=== PATIENT | male | born 2000 | race Two or more races ===

== ENCOUNTER 2018-08-07 21:17 | Emergency (ER) | payer SELFPAY ==
[~2018-08-07] VITALS: Ht 182.9 cm; Wt 81.6 kg
[2018-08-07 21:24] VITALS: BP 143/99
== END 2018-08-08 00:35 | disposition left against medical advice (07) ==
LOC: EDBD 21:17 → ER 21:21
DX: M25.512 Pain in left shoulder (principal); Z53.21 Procedure and treatment not carried out due to patient leaving prior to being seen by health care provider; V43.52XA Car driver injured in collision with other type car in traffic accident, initial encounter; Y93.89 Activity, other specified; Y99.8 Other external cause status; Y92.410 Unspecified street and highway as the place of occurrence of the external cause
CPT/HCPCS: 73030